=== PATIENT | male | born 1985 | race Caucasian/White ===

== ENCOUNTER 2017-03-20 20:36 | Inpatient (IN) | payer OTHER ==
[~2017-03-20] VITALS: Ht 177.8 cm; Wt 80.2 kg
[2017-03-20 20:46] VITALS: BP 165/84; PULSE 121; RESP 15; TEMP 98.5; O2SAT 98
[2017-03-20] MEDS ORDERED: DOCU250C7 PO (21:16)
[2017-03-20] MEDS ORDERED: DULO1CAP PO (21:16)
[2017-03-20] MEDS ORDERED: GABA300C5 PO (21:16)
[2017-03-20] MEDS ORDERED: TIZA2CAP3 PO (21:16)
[2017-03-20] MEDS ORDERED: VITA1000 PO (21:16)
[2017-03-20] MEDS ORDERED: LYRI100C PO (21:16)
[2017-03-20] MEDS ORDERED: TROS60CA2 PO (21:16)
[2017-03-20] MEDS ORDERED: MORP1TAB25 PO (21:16)
[2017-03-20] MEDS ORDERED: OXYC1CAP PO (21:16)
[2017-03-20 21:30] VITALS: BP 151/86; PULSE 112; RESP 18; O2SAT 96
[2017-03-20] MEDS ORDERED: NALOXONE HCL 0.4 MG/ML AMP IV PUSH ONE ×2 (21:30)
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
[2017-03-20 21:56] VITALS: BP 154/86; PULSE 124; RESP 15; O2SAT 99
[2017-03-20 21:57] LABS: BACTERIA, URINE RARE /hpf; BLOOD, URINE SMALL (NEG); COMMENT (UR) CULT NOT INDICATED; CULTURE IF INDICATED CULT NOT INDICATED; GLUCOSE,URINE NEG (NEG); KETONE, URINE NEG (NEG); MUCUS URINE FEW /lpf (OCC); NITRITE,URINE NEG (NEG); SQUAMOUS EPITHELIAL CELL URINE <1 /hpf (0-5); URINE COLOR LIGHT-YELLOW (YELLW/STRAW)
[2017-03-20 22:00] LABS: AUTOMATED NEUTROPHIL # 6.2 TH/MM3 (1.8-7.7); BASOPHIL # 0.1 TH/MM3 (0-0.2); BASOPHIL % 0.9 % (0.0-2.0); EOSINOPHIL # 0.1 TH/MM3 (0-0.4); EOSINOPHIL % 1.3 % (0.0-4.0); HEMATOCRIT 37.4 % (39.0-51.0); HEMO FLAGS DIFF FINAL; LYMPH % 14.1 % (9.0-44.0); LYMPHOCYTE # 1.2 TH/MM3 (1.0-4.8); MEAN CELL VOLUME 80.3 FL (80.0-100.0); MEAN CORPUSCULAR HEMOGLOBIN 27.4 PG (27.0-34.0); MEAN CORPUSCULAR HGB CONC 34.1 % (32.0-36.0); MONO % 8.7 % (0.0-8.0); PLATELET COUNT 278 TH/MM3 (150-450); RED BLOOD COUNT 4.66 MIL/MM3 (4.50-5.90); RED CELL DISTRIBUTION WIDTH 13.9 % (11.6-17.2); WHITE BLOOD COUNT 8.2 TH/MM3 (4.0-11.0)
--- NOTE | 2017-03-20 22:09 | RADRPT ---
EXAM DATE/TIME: 03/20/2017 21:49 [place] COMPARISON: No previous studies available for comparison. INDICATIONS : Cough. Overdose. MEDICAL HISTORY : Paraplegic. SURGICAL HISTORY : Spinal fusion. ENCOUNTER: Initial ACUITY: 1 day PAIN SCORE: 0/10 LOCATION: Bilateral chest FINDINGS: A single view of the chest demonstrates the lungs to be symmetrically aerated without evidence of mas s, infiltrate or effusion. The cardiomediastinal contours are unremarkable. Surgical hardware is see n in the lower thoracic spine. CONCLUSION: No acute disease. Alexi Hull MD on March 20, 2017 at 22:06 Board Certified Radiologist. This report was verified electronically.
[2017-03-20 22:13] LABS: ANION GAP 5 MEQ/L (5-15); AST (GOT) 32 U/L (15-37); BICARBONATE 33.2 MEQ/L (21.0-32.0); BLOOD UREA NITROGEN 7 MG/DL (7-18); CHLORIDE 101 MEQ/L (98-107); GLOMERULAR FILTRATION RATE 131 ML/MIN (>89); POTASSIUM 3.4 MEQ/L (3.5-5.1); SODIUM (NA) 139 MEQ/L (136-145)
[2017-03-20 22:14] LABS: ALT (GPT) 45 U/L (12-78)
[2017-03-20 22:16] LABS: ALKALINE PHOSPHATASE 111 U/L (45-117); TOTAL BILIRUBIN ADULT 0.2 MG/DL (0.2-1.0)
[2017-03-20 23:00] VITALS: BP 135/79; PULSE 108; RESP 16; O2SAT 97
[2017-03-21] VITALS (7 sets, daily range): BP systolic 124–148; BP diastolic 62–86; PULSE 95–110; RESP 14–18; TEMP 98.1–98.2; O2SAT 95–98
[2017-03-21] MEDS: NICOTINE 21 MG/24 HR PATCH T-DERMAL SCH (10:00)
[2017-03-21] MEDS ORDERED: hydrOXYzine HCL 50 MG TAB PO PRN (10:00)
[2017-03-21] MEDS ORDERED: diphenhydrAMINE HCL 50 MG CAP PO PRN (10:00)
[2017-03-21] MEDS ORDERED: MAGNESIUM HYDROXIDE SUSP 30 ML CUP PO PRN (10:00)
[2017-03-21] MEDS ORDERED: ALUMINUM/MAGNESIUM/SIMETH 30 ML CUP PO PRN (10:00)
[2017-03-21] MEDS ORDERED: LORazepam 2 MG/ML VIAL IM PRN (10:00)
[2017-03-21] MEDS ORDERED: ACETAMINOPHEN 325 MG TAB PO PRN (10:00)
[2017-03-21] MEDS ORDERED: diphenhydrAMINE HCL 50 MG/ML VIAL IM PRN (10:00)
[2017-03-21] MEDS ORDERED: LORazepam 1 MG TAB PO PRN (10:00)
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
[2017-03-21] MEDS ORDERED: ACETAMINOPHEN/HYDROcodone 325 MG/5 MG TAB PO PRN (13:00)
[2017-03-21] MEDS: ENOXAPARIN SODIUM 40 MG/0.4 ML SYRINGE SQ SCH (14:00)
--- NOTE | 2017-03-21 15:02 | PD.WCN.NOT ---
Wound Consult Additional Information: Patient not seen. Spoke with DERRICK Muhammad regarding skin condition and, RN states , "bottom is reddened but not opened". Patient is paraplegic and per RN has a history of pressure related breakdown. Recommend WAVE bed for pressure injury prevention Jane Childs [facility] Mar 21, 2017 15:02
--- NOTE | 2017-03-21 16:05 | EKG ---
Date Performed: 03/20/2017 Time Performed: 20:48:25 PTAGE: 31 years EKG: SINUS TACHYCARDIA NONSPECIFIC ST & T-WAVE ABNORMALITY ABNORMAL ECG NO PREVIOUS TRACING DOCTOR: Rima Wilde Interpretating Date/Time 03/21/2017 16:03:37
[2017-03-21] MEDS: REMOVE OLD NICOTINE PATCH T-DERMAL SCH (20:50)
[2017-03-21] MEDS ORDERED: diphenhydrAMINE HCL 50 MG/ML VIAL - HS PRN IM (21:00)
[2017-03-21] MEDS ORDERED: diphenhydrAMINE HCL 50 MG CAP - HS PRN PO (21:00)
[2017-03-22 05:54] VITALS: BP 128/63; PULSE 100; RESP 18; TEMP 98.1; O2SAT 97
[2017-03-22] MEDS: NICOTINE 21 MG/24 HR PATCH T-DERMAL SCH (08:17)
[2017-03-22 09:05] LABS: AUTOMATED NEUTROPHIL # 7.6 TH/MM3 (1.8-7.7); BASOPHIL % 0.5 % (0.0-2.0); EOSINOPHIL # 0.1 TH/MM3 (0-0.4); EOSINOPHIL % 0.6 % (0.0-4.0); HEMATOCRIT 38.6 % (39.0-51.0); HEMO FLAGS DIFF FINAL; LYMPH % 11.3 % (9.0-44.0); LYMPHOCYTE # 1.1 TH/MM3 (1.0-4.8); MEAN CELL VOLUME 80.3 FL (80.0-100.0); MEAN CORPUSCULAR HEMOGLOBIN 27.1 PG (27.0-34.0); MEAN CORPUSCULAR HGB CONC 33.7 % (32.0-36.0); MONO % 7.2 % (0.0-8.0); NEUT % 80.4 % (16.0-70.0); PLATELET COUNT 258 TH/MM3 (150-450); RED CELL DISTRIBUTION WIDTH 14.1 % (11.6-17.2); WHITE BLOOD COUNT 9.5 TH/MM3 (4.0-11.0)
[2017-03-22 09:21] LABS: ALT (GPT) 51 U/L (12-78); ANION GAP 8 MEQ/L (5-15); AST (GOT) 44 U/L (15-37); BICARBONATE 28.6 MEQ/L (21.0-32.0); BLOOD UREA NITROGEN 7 MG/DL (7-18); CHLORIDE 105 MEQ/L (98-107); POTASSIUM 3.3 MEQ/L (3.5-5.1); SODIUM (NA) 142 MEQ/L (136-145)
[2017-03-22 09:25] LABS: ALKALINE PHOSPHATASE 107 U/L (45-117); GLOMERULAR FILTRATION RATE 151 ML/MIN (>89); HDL CHOLESTEROL 38.5 MG/DL (40.0-60.0); LDL CHOLESTEROL 89 MG/DL (0-99); TOTAL BILIRUBIN ADULT 0.3 MG/DL (0.2-1.0)
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
[2017-03-22] MEDS: DOCUSATE SODIUM 100 MG/10 ML UDC PO SCH ×2 (12:00→14:03)
[2017-03-22] MEDS: CHOLECALCIFEROL (VIT D3) 1000 UNIT TAB PO SCH ×2 (12:00→14:10)
[2017-03-22] MEDS ORDERED: TROSPIUM 60 MG PO SCH (12:00)
[2017-03-22] MEDS: ENOXAPARIN SODIUM 40 MG/0.4 ML SYRINGE SQ SCH (14:00)
[2017-03-22] MEDS: GABAPENTIN 300 MG CAP PO SCH ×2 (14:04→17:09)
[2017-03-22] MEDS ORDERED: SOD PHOSPHATE/SOD BIPHOSPHATE (ADULT) ENEMA 133ML RECTAL ONE (14:30)
[2017-03-22] MEDS ORDERED: PILL SPLITTER OTHER PRN (15:00)
--- NOTE | 2017-03-22 16:10 | HHI.HP ---
Provisional Diagnosis Admission Date Mar 21, 2017 at 06:19 [place] I. Adjustment disorder with depressed mood Certification of Person's Competence To Provide Express and Informed Consent I have personally examined Todd ChapamathewgrahamJr , a person being served at [facility], [place] on, Mar 22, 2017 16:03. Express and informed consent means consent voluntarily given in writing, by a competent person, after sufficient explanation and disclosure of the subject matter involved to enable the person to make a knowing and willful decision without any element of force, fraud, deceit, duress, or other form of constraint or coercion. This person is 18 years of age or older, is not now known to be incompetent to consent to treatment with a guardian advocate, and does not have a health care surrogate or proxy currently making medical treatment decisions. I have found this person to be one of the following: [x] Competent to provide express and informed consent, as defined above, for voluntary admission to this facility and is competent to provide express and informed consent for treatment. He/she has the consistent capacity to make well reasoned, willful, and knowing decisions concerning his or her medical or mental health treatment. The person fully and consistently understands the purpose of the admission for examination/placement and is fully capable of personally exercising all rights assured under [place] [] Incompetent to provide express and informed consent to voluntary admission, and this is incompetent to provide express and informed consent to treatment. The person must be transferred to involuntary status and a petition for a guardian advocate filed with the Circuit Court. [] Refusing to provide express and informed consent to voluntary admission but is competent to provide express and informed consent for treatment. The person must be discharged or transferred to involuntary status. Form shall be completed within 24 hours of a person's arrival at the receiving facility and filed in the clinical record of each person: 1. Admitted on a voluntary basis 2. Permitted to provide express and informed consent to his/her own treatment 3. Allowed to transfer from involuntary to voluntary status 4. Prior to permitting a person to consent to his or her own treatment after having been previously found incompetent to consent to treatment. History of Present Illness Capacity: Has Capacity HPI Patient is a 31-year-old man, with 3 young children, employed with the , with a past psychiatric history of depression, 1 previous psychiatric hospitalization, what previous recent suicide attempt 3 months ago via jumping off a 4 story building resulting in paraplegia, we recently moved down to [place] from [place] after a 3 month inpatient rehabilitation hospitalization who was brought into the ER by paramedics as patient had an apparent overdose on morphine and oxycodone tablets which she was transferred to the inpatient psychiatry for further evaluation and management. Patient was found sitting in hospital bed, cooperative but noted to be guarded during interview. Patient states that he was previously in rehabilitation from his recent suicide attempt where he had jumped from a 4 story building back in December of this year. Patient states that he is in the hospital today because he I used to many pills referring to his opiate prescription medications for pain. Patient states that he had been prescribed narcotic since his injury and reports that they have overdose he states the direction of administration was twice a day which didnt work and states having taken 10 tablets. He states that it was not attempted to end his life but only because the medicine wasnt working. Patient was asked whether he was taking her medication gradually increasing in dose but states that it was only that he decided to take 10 tablets as opposed to 1 tablet twice a day. Patient reports having a strong with sleep, appetite, energy, concentration, feeling helpless or hopeless and denies suicide ideations. He reports that he has his good days and bad days and when asked about his bad days he states that his depression is usually about 7 out of 10 as he reports feeling upset that he has to care for himself differently as opposed to when he was not paraplegic. When asked about his initial suicide attempt where he had jumped for 4 story building he states that at that time he had recently found out that his had cheated on him for the past couple of years and decided to jump in attempt to end his life. 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 Currently patient states feeling alright denies SI, HI , AVH or delusions. Psychiatric family history: Cousin with bipolar disorder, no suicides in the family Past psychiatric history: previous psychiatric diagnoses of depression, one recent previous psychiatric hospitalizations, one recent previous suicide attempt (jumping from a 4 story building) denies self-injurious behavior. Previous psychiatric medications: Cymbalta, Lyrica, gabapentin, oxycodone, morphine. Patient states that he has an outpatient psychiatrist and therapist back in [place]. Substance use disorder: Alcohol and tobacco prior to December of this year but denies any use of any other drugs Past medical history: Recent paraplegia Allergies: NKDA Social history: , has 3 young children, domicile with and children, employed in the , recently moved down to [facility] 6 days ago but plans on returning back to [facility] to live permanently. Denies having access to firearms. Denies any legal history. Review of Systems Except as stated in HPI: all other systems reviewed are Neg Past Psych History Violence risk - others (6 mos) Low Violence risk - self (6 mos) High due to recent suicide attempt in December recent overdose Substance Abuse History Drugs/Alcohol past 12 months Alcohol and tobacco prior to December of this year but denies any use of any other drugs Past Family Social History Coded Allergies: No Known Allergies (Unverified , 03/20/17) Reported Medications Docusate Sodium (Docusate Sodium) 250 Mg Cap, 250 MG PO DAILY for Prevent Constipation, #30 CAP 0 Refills 03/20/17 Tizanidine (Tizanidine) 2 Mg Cap, 2 MG PO TID for Muscle Spasm, CAP 0 Refills 03/20/[address] (Duloxetine DR) 20 Mg Capdr, 20 MG PO DAILY, #30 CAP 0 Refills 03/20/17 Pregabalin (Lyrica) 100 Mg Cap, 100 MG PO BID, #60 CAP 0 Refills 03/20/17 Trospium ER (Trospium ER) 60 Mg Cap, 60 MG PO BID for Urinary Symptom Managemen , #30 CAP 0 Refills 03/20/17 Gabapentin (Gabapentin) 300 Mg Cap, 300 MG PO TID, #90 CAP 0 Refills 03/20/17 Cholecalciferol (Vitamin D-1000) 1,000 Unit Tab, 1000 UNITS PO DAILY for Nutritional Supplement, #1 BOTTLE 0 Refills 03/20/17 Oxycodone (Oxycodone) 5 Mg Cap, 10 MG PO Q6H Y for PAIN, CAP 0 Refills 03/20/17 Morphine ER (Morphine ER) 30 Mg Tab, 30 MG PO BID for Pain Management, TAB 0 Refills 03/20/17 Current Medications Medications (Trade) Dose Ordered Sig/Lor Route Start Time Stop Time Status Last Admin (Ativan) 1 mg Q6H PRN PO 03/21/17 10:00 (Ativan Inj) 1 mg Q6H PRN IM 03/21/17 10:00 (Atarax) 50 mg Q6H PRN PO 03/21/17 10:00 (Benadryl) 50 mg Q6H PRN PO 03/21/17 10:00 (Benadryl Inj) 50 mg Q6H PRN IM 03/21/17 10:00 (Benadryl) 50 mg HS PRN PO 03/21/17 21:00 (Benadryl Inj) 50 mg HS PRN IM 03/21/17 21:00 (Tylenol) 650 mg Q4H PRN PO 03/21/17 10:00 (Milk Of Magnesia Liq) 30 ml DAILY PRN PO 03/21/17 10:00 (Mag-Al Plus Susp Liq) 30 ml Q6H PRN PO 03/21/17 10:00 (Habitrol 21 Mg Patch.24 Hr) 1 patch DAILY T-DERMAL 03/21/17 10:00 Miscellaneous Information 1 HS T-DERMAL 03/21/17 21:00 ([place] 5-325 Mg) 1 tab Q4H PRN PO 03/21/17 13:00 (Lovenox Inj) 40 mg Q24H SQ 03/21/17 14:00 (Vitamin D3) 1,000 units DAILY PO 03/22/17 12:00 03/22/17 14:10 (Neurontin) 300 mg TID PO 03/22/17 13:00 03/22/17 14:04 Patient Own Medication PT OWN MED: TROSP... BID PO 03/22/17 12:00 Future Hold (Colace) 100 mg BID PO 03/22/17 21:00 (Cymbalta Dr) 20 mg DAILY PO 03/22/17 14:45 (SEROquel) 50 mg HS PO 03/22/17 21:00 (Pill Splitter) 1 ea UNSCH PRN OTHER 03/22/17 15:00 Family Psych History Cousin with bipolar disorder, no suicides in the family Social History , has 3 young children, domicile with and children, employed in the , recently moved down to [facility] 6 days ago but plans on returning back to [facility] to live permanently. Denies having access to firearms. Denies any legal history. Patient's Strengths (min. 2) Verbal and communicative Physical Exam A physical examination was completed in the emergency room prior to transfer to the inpatient unit. For me, patient noted to be paraplegic, No hand tremor noted. Normal muscle bulk and tone above the waist. No abnormal motor movements noted. Vital Signs Vital Signs Date Time Temp Pulse Resp B/P (MAP) Pulse Ox O2 Delivery O2 Flow Rate FiO2 03/22/17 05:54 98.1 100 18 128/63 (84) 97 03/21/17 06:30 Room Air I/O 03/22/17 03/22/17 03/23/17 08:00 16:00 00:00 Intake Total 480 ml Output Total 675 ml Balance -195 ml Lab Results Labs reviewed Test 03/22/17 08:09 White Blood Count 9.5 TH/MM3 Red Blood Count 4.80 MIL/MM3 Hemoglobin 13.0 GM/DL Hematocrit 38.6 % Mean Corpuscular Volume 80.3 FL Mean Corpuscular Hemoglobin 27.1 PG Mean Corpuscular Hemoglobin Concent 33.7 % Red Cell Distribution Width 14.1 % Platelet Count 258 TH/MM3 Mean Platelet Volume 8.7 FL Neutrophils (%) (Auto) 80.4 % Lymphocytes (%) (Auto) 11.3 % Monocytes (%) (Auto) 7.2 % Eosinophils (%) (Auto) 0.6 % Basophils (%) (Auto) 0.5 % Neutrophils # (Auto) 7.6 TH/MM3 Lymphocytes # (Auto) 1.1 TH/MM3 Monocytes # (Auto) 0.7 TH/MM3 Eosinophils # (Auto) 0.1 TH/MM3 Basophils # (Auto) 0.0 TH/MM3 CBC Comment DIFF FINAL Differential Comment Blood Urea Nitrogen 7 MG/DL Creatinine 0.63 MG/DL Random Glucose 100 MG/DL Total Protein 7.1 GM/DL Albumin 3.3 GM/DL Calcium Level 8.7 MG/DL Alkaline Phosphatase 107 U/L Aspartate Amino Transf (AST/SGOT) 44 U/L Alanine Aminotransferase (ALT/SGPT) 51 U/L Total Bilirubin 0.3 MG/DL Sodium Level 142 MEQ/L Potassium Level 3.3 MEQ/L Chloride Level 105 MEQ/L Carbon Dioxide Level 28.6 MEQ/L Anion Gap 8 MEQ/L Estimat Glomerular Filtration Rate 151 ML/MIN Triglycerides Level 90 MG/DL Cholesterol Level 145 MG/DL LDL Cholesterol 89 MG/DL HDL Cholesterol 38.5 MG/DL Cholesterol/HDL Ratio 3.76 RATIO Thyroid Stimulating Hormone 3rd Gen 0.723 uIU/ML Mental Status Examination Appearance: Appropriate Consciousness: Alert Orientation: Person, Place, Date/Time Speech: Unremarkable Language: Adequate Fund of Knowledge: Adequate Attention and Concentration: Adequate Memory: Unremarkable Mood: Other ("alright") Affect: Sad, Blunt Thought Process & Associations: Intact, Linear Thought Content: Appropriate Hallucination Type: None Delusion Type: None Suicidal Ideation: Yes (denies at this time) Suicidal Plan: No Suicidal Intention: No Homicidal Ideation: No Homicidal Plan: No Homicidal Intention: No Insight: Poor Judgment: Poor Assessment & Plan Problem List: (1) Adjustment disorder with depressed mood ICD Codes: F43.21 - Adjustment disorder with depressed mood Assessment & Plan Estimated LOS: 5-7 days. Patient is a 41-year-old man who carries a diagnosis of depression with a recent psychiatric hospitalization secondary to recent suicide attempt back in December 2016 after jumping from [employer] ([place]), having survived is not paraplegic would come to the ER upon this occasion due to suspected intentional overdose which she took 10 tablets of morphine. Patient at this time denies recent overdose as being intentional stating only that his dose was not sufficient to control his pain. Patient noted the very guarded and not elaborating on his recent depression. Patient remains at an elevated risk for self-harm due to recent suicide attempt, now paraplegic and adjusting to his new way of living as a paraplegic, noted to be dysphoric with blunted affect which patient will require further observation of mood and behavior and for safety. Patient does have some protective factors in that he is , has 3 children, is unemployed has adequate social support. Will continue fluoxetine 20 mg by mouth daily with upper titration as needed for depression, and start Seroquel 50 mg at bedtime as an adjunct with upper titration as needed. Continue present medications, regulations as per primary medical team. Discharge planning in progress Discharge Planning Patient to return back to his residence once psychiatrically stable. Enoch Padron MD Mar 22, 2017 16:10
[2017-03-22] MEDS: DULoxetine HCl DR 20 MG CAP PO SCH (16:42)
[2017-03-22 16:52] LABS: HEMOGLOBIN A1a 1.2 %; HEMOGLOBIN A1b 0.7 %; HEMOGLOBIN Ao 85.1 %; HEMOGLOBIN LA1C 2.2 %; HEMOGLOBIN P3 3.8 %
[2017-03-22 18:15] VITALS: BP 129/71; PULSE 123; RESP 19; TEMP 98.4; O2SAT 100
[2017-03-22] MEDS: REMOVE OLD NICOTINE PATCH T-DERMAL SCH (21:00)
[2017-03-22] MEDS ORDERED: QUEtiapine FUMARATE 100 MG TAB PO SCH (21:00)
[2017-03-22] MEDS: DOCUSATE SODIUM 100 MG CAP PO SCH (21:43)
[2017-03-23 05:42] VITALS: BP 124/66; PULSE 95; RESP 16; TEMP 98.3; O2SAT 100
[2017-03-23] MEDS: GABAPENTIN 300 MG CAP PO SCH ×2 (08:48→13:49)
[2017-03-23] MEDS: NICOTINE 21 MG/24 HR PATCH T-DERMAL SCH (08:49)
[2017-03-23] MEDS: DULoxetine HCl DR 20 MG CAP PO SCH (08:49)
[2017-03-23] MEDS: DOCUSATE SODIUM 100 MG CAP PO SCH (08:50)
[2017-03-23 13:04] LABS: BICARBONATE 30.2 MEQ/L (21.0-32.0); POTASSIUM 3.3 MEQ/L (3.5-5.1)
[2017-03-23] MEDS: ENOXAPARIN SODIUM 40 MG/0.4 ML SYRINGE SQ SCH (13:44)
[2017-03-23] MEDS ORDERED: POTASSIUM CHLORIDE 10 MEQ CONTROLLED RELEASE TAB PO ONE (13:45)
--- NOTE | 2017-03-23 13:46 | HHI.PR ---
Subjective Remarks Patient seen and evaluated in follow-up for paraplegia and for hypokalemia. Patient having more spasms and the like to resume his tizanidine. Discussed with RN Objective Vitals Vital Signs Date Time Temp Pulse Resp B/P (MAP) Pulse Ox O2 Delivery O2 Flow Rate FiO2 03/23/17 05:42 98.3 95 16 124/66 (85) 100 03/22/17 18:15 98.4 123 19 129/71 (90) 100 I/O 03/22/17 03/22/17 03/22/17 03/23/17 03/23/17 03/23/17 07:00 15:00 23:00 07:00 15:00 23:00 Intake Total 480 ml 720 ml 240 ml Output Total 675 ml 600 ml Balance -195 ml 720 ml -360 ml Intake Oral 480 ml 720 ml 240 ml Output Urine Total 675 ml 600 ml # Bowel Movements 1 Result Diagram: 03/22/17 0809 03/23/17 1210 Objective Remarks GENERAL: This is a well-nourished, well-developed patient, in no apparent distress. CARDIOVASCULAR: Sinus tachycardia without murmurs, gallops, or rubs. RESPIRATORY: Clear to auscultation. Breath sounds equal bilaterally. No wheezes , rales, or rhonchi. GASTROINTESTINAL: Brown, Abdomen soft, non-tender, nondistended. Normal active bowel sounds MUSCULOSKELETAL: Lower extremity paraplegia, upper extremities within normal limits NEURO: Alert & Oriented x4 to person, place, time, situation. Moves all ext x4 A/P Problem List: (1) Overdose ICD Code: T50.901A - Poisoning by unspecified drugs, medicaments and biological substances, accidental (unintentional), initial encounter Plan: Appears to be stable after significant narcotic ingestion Continue clinical observation Continue Narco for pain with further evaluation for long acting narcotics if needed (2) Paraplegia ICD Code: G82.20 - Paraplegia, unspecified Plan: Patient reports level of T10 paraplegia requiring frequent self catheter and increase independence Recently discharged from rehabilitation facility as this is a fairly recent traumatic accident (3 months ago) We'll continue with Brown for now while in the psych unit agent may resume self- care at discharge Patient on multiple muscle relaxers and narcotics for pain Resume tizanidine for spasms (3) Depression ICD Code: F32.9 - Major depressive disorder, single episode, unspecified Status: Acute Plan: Continue management as per primary service (4) Tachycardia ICD Code: R00.0 - Tachycardia, unspecified Plan: Likely Sympathetic Continue to follow clinically Discharge Planning hospitalist clear for discharge when cleared by primary service Problem Qualifiers (1) Depression: Qualified Codes: F32.2 - Major depressive disorder, single episode, severe without psychotic features Maria Elena Jimenez MD Mar 23, 2017 13:46
--- NOTE | 2017-03-23 15:52 | HHI.DS ---
Psychiatry Discharge Summary Inpatient Psychiatric care?: Yes Advance Directive: No Reason Not Provided: Due to Patient Condition Mental Health AdvanceDirective: No Health Care Proxy: No Admission Admission Date Mar 21, 2017 at 06:19 Admission Diagnosis: (1) Adjustment disorder with depressed mood ICD Code: F43.21 - Adjustment disorder with depressed mood Brief History Patient is a 31-year-old man, with 3 young children, employed with the , with a past psychiatric history of depression, 1 previous psychiatric hospitalization, what previous recent suicide attempt 3 months ago via jumping off a 4 story building resulting in paraplegia, we recently moved down to [place] from [place] after a 3 month inpatient rehabilitation hospitalization who was brought into the ER by paramedics as patient had an apparent overdose on morphine and oxycodone tablets which she was transferred to the inpatient psychiatry for further evaluation and management. Patient was found sitting in hospital bed, cooperative but noted to be guarded during interview. Patient states that he was previously in rehabilitation from his recent suicide attempt where he had jumped from a 4 story building back in December of this year. Patient states that he is in the hospital today because he I used to many pills referring to his opiate prescription medications for pain. Patient states that he had been prescribed narcotic since his injury and reports that they have overdose he states the direction of administration was twice a day which didnt work and states having taken 10 tablets. He states that it was not attempted to end his life but only because the medicine wasnt working. Patient was asked whether he was taking her medication gradually increasing in dose but states that it was only that he decided to take 10 tablets as opposed to 1 tablet twice a day. Patient reports having a strong with sleep, appetite, energy, concentration, feeling helpless or hopeless and denies suicide ideations. He reports that he has his good days and bad days and when asked about his bad days he states that his depression is usually about 7 out of 10 as he reports feeling upset that he has to care for himself differently as opposed to when he was not paraplegic. When asked about his initial suicide attempt where he had jumped for 4 story building he states that at that time he had recently found out that his had cheated on him for the past couple of years and decided to jump in attempt to end his life. 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 Currently patient states feeling alright denies SI, HI , AVH or delusions. Psychiatric family history: Cousin with bipolar disorder, no suicides in the family Past psychiatric history: previous psychiatric diagnoses of depression, one recent previous psychiatric hospitalizations, one recent previous suicide attempt (jumping from a 4 story building) denies self-injurious behavior. Previous psychiatric medications: Cymbalta, Lyrica, gabapentin, oxycodone, morphine. Patient states that he has an outpatient psychiatrist and therapist back in [place]. Substance use disorder: Alcohol and tobacco prior to December of this year but denies any use of any other drugs Past medical history: Recent paraplegia Allergies: NKDA Social history: , has 3 young children, domicile with and children, employed in the , recently moved down to [facility] 6 days ago but plans on returning back to [facility] to live permanently. Denies having access to firearms. Denies any legal history. Tobacco Use In Past 30 Days: Cigarettes But Not Daily Alcohol Use: Monthly or Less Hospital Course Patient's hospital course was uneventful. Patient compliant with medications and milieu. Met with patient's mother father and today. Patient is connected with the [place] in [place] where he has all of his treatment team. The family has made arrangements for him to be transported to that facility the first part of this coming week. At this time patient denies suicidality homicidality voices or visions. He does wish to be discharged her family. The family feels quite confident taking him home and helping to monitor him and assist him. Thus patient to be discharged today. He states he has sufficient with no medications at home thus to be no Rx given by me. Patient discharged to his family for follow-up of the [place] facility in [place] Results Blood Pressure 124 / 66 Vital Signs Date Time Temp Pulse Resp B/P (MAP) Pulse Ox O2 Delivery O2 Flow Rate FiO2 03/23/17 05:42 98.3 95 16 124/66 (85) 100 03/21/17 06:30 Room Air Laboratory Tests Test 03/20/17 21:40 03/20/17 21:44 03/22/17 08:09 03/23/17 12:10 Hemoglobin 12.8 GM/DL (13.0-17.0) Hematocrit 37.4 % (39.0-51.0) 38.6 % (39.0-51.0) Neutrophils (%) (Auto) 75.0 % (16.0-70.0) 80.4 % (16.0-70.0) Monocytes (%) (Auto) 8.7 % (0.0-8.0) Potassium Level 3.4 MEQ/L (3.5-5.1) 3.3 MEQ/L (3.5-5.1) 3.3 MEQ/L (3.5-5.1) Carbon Dioxide Level 33.2 MEQ/L (21.0-32.0) Urine Turbidity HAZY (CLEAR) Urine Occult Blood SMALL (NEG) Urine Leukocyte Esterase SMALL (NEG) Urine RBC 9 /hpf (0-3) Urine Bacteria RARE /hpf (NONE) Urine Mucus FEW /lpf (OCC) Albumin 3.3 GM/DL (3.4-5.0) Aspartate Amino Transf (AST/SGOT) 44 U/L (15-37) HDL Cholesterol 38.5 MG/DL (40.0-60.0) Random Glucose 111 MG/DL (74-106) Chloride Level 108 MEQ/L (98-107) Laboratory Results Test 03/22/17 08:09 Cholesterol Level 145 MG/DL (120-200) HDL Cholesterol 38.5 MG/DL (40.0-60.0) Hemoglobin A1c 5.7 % (4.3-6.0) LDL Cholesterol 89 MG/DL (0-99) Triglycerides Level 90 MG/DL (42-150) Summary of Procedures None done Imaging Last Impressions Chest X-Ray 03/20/17 0000 Signed Impressions: Service Date/Time: Monday, March 20, 2017 21:49 - CONCLUSION: No acute disease. Alexi Hull MD Pending results at discharge: No Medications # of Antipsychotic meds at D/C: 0 Approp Antipsych med options 1 - Minimum of three failed multiple trials of monotherapy. 2 - Documented plan to taper to monotherapy due to previous use of multiple meds OR cross-taper in progress at D/C. 3 - Documentation of augmentation of Clozapine. 4 - Justification other than those listed in allowable values 1-3, document here : Discharge Discharge Date: Mar 23, 2017 Discharge Diagnosis: (1) Adjustment disorder with depressed mood Diagnosis: Principal ICD Code: F43.21 - Adjustment disorder with depressed mood Pt Condition on Discharge: Stable Discharge Disposition: Discharge Home Discharge Instructions Diet Instructions: As Tolerated, No Restrictions Activities you can perform: See Additionl Instruction Other Activity Instructions: As tolerated [facility]uled [facility] Discharge Time > 30 minutes Mental Status Examination Appearance: Appropriate Consciousness: Alert Orientation: Person, Place, Date/Time Speech: Unremarkable Language: Adequate Fund of Knowledge: Adequate Attention and Concentration: Adequate Memory: Unremarkable Mood: Other ("alright") Affect: Sad, Blunt Thought Process & Associations: Intact, Linear Thought Content: Appropriate Hallucination Type: None Delusion Type: None Suicidal Ideation: Yes (denies at this time) Suicidal Plan: No Suicidal Intention: No Homicidal Ideation: No Homicidal Plan: No Homicidal Intention: No Insight: Poor Judgment: Poor Discharge/Advance Care Plan Health Problems: (1) Adjustment disorder with depressed mood Goals to promote your health * To prevent worsening of your condition and complications * To maintain your health at the optimal level Directions to meet your goals Take your medications as prescribed Follow your dietary instruction Follow activity as directed Keep your appointments as scheduled Take your immunizations and boosters as scheduled If your symptoms worsen call your PCP, if no PCP go to Urgent Care Center or Emergency Room For 26/11 questions related to your inpatient stay or results of tests pending at discharge, please contact Dr. Alexi Child at Smoking is Dangerous to Your Health. Avoid second hand smoking Alexi Child MD Mar 23, 2017 15:52
== END 2017-03-23 16:08 | disposition home or self-care (01) | DRG 918 ==
LOC: NEPC 20:36 → NEDA 03-21 06:19 → H4EA 03-21 07:55
PROVIDERS: ADMIT Student in an Organized Health Care Education/Training Program; ATTEND Student in an Organized Health Care Education/Training Program
DX: T40.2X1A Poisoning by other opioids, accidental (unintentional), initial encounter (principal); G82.20 Paraplegia, unspecified; F43.21 Adjustment disorder with depressed mood; R40.0 Somnolence; E87.6 Hypokalemia; R00.0 Tachycardia, unspecified; Z72.0 Tobacco use
CPT/HCPCS: 71010; 80048; 80053; 80061; 81001; 83036; 84443; 85025; 93005; 96374; J1650; J2310